=== PATIENT | male | born 1995 | race Hispanic/Latino ===

== ENCOUNTER 2017-07-08 10:03 | Emergency (ER) | payer BC ==
[2017-07-08] MEDS ORDERED: ONDANSETRON HCL 4 MG/2 ML VIAL ONE (11:01)
[2017-07-08] MEDS ORDERED: SODIUM CHLORIDE 0.9% 1000ML 1,000 ML IV ONE (11:01)
[2017-07-08] MEDS ORDERED: KETOROLAC TROMETHAMINE 30MG/ML ONE (11:01)
[2017-07-08] MEDS ORDERED: ACETAMINOPHEN 325 MG TAB ONE (11:01)
[2017-07-08 11:04] LABS: BASOPHILS % (AUTO) 0.4 % (0.0-5.0); EOSINOPHILS % (AUTO) 0.1 % (0.0-8.0); HEMATOCRIT 45.7 % (42-54); LYMPHOCYTES % (AUTO) 9.4 % (21.0-51.0); MEAN CORPUSCULAR HEMOGLOBIN 30.2 pg (27.0-33.0); MEAN CORPUSCULAR HGB CONC 36.1 g/dL (32.0-36.0); MEAN CORPUSCULAR VOLUME 83.6 fL (80-100); MONOCYTES % (AUTO) 13.2 % (3.0-13.0); NEUTROPHILS % (AUTO) 76.9 % (40.0-77.0); NUCLEATED RED BLOOD CELLS 0.1 % (0.0-0.19); PLATELET COUNT (AUTO) 248 K/uL (130-400); RED BLOOD CELL COUNT(AUTO) 5.47 MIL/uL (4.50-6.20); RED CELL DISTRIBUTION WIDTH 13.2 % (11.0-15.5); WHITE BLOOD COUNT (AUTO) 9.7 K/uL (4.8-10.8)
[2017-07-08 11:06] LABS: APPEARANCE,URINE Clear (CLEAR); BILIRUBIN,URINE Small (NEGATIVE); COLOR,URINE Dark Yellow (YELLOW); GLUCOSE, URINE (UA) Negative (NEGATIVE); KETONES,URINE 40 mg/dL (NEGATIVE); LEUKOCYTE ESTERASE ,URINE Trace (NEGATIVE); NITRATE,URINE Negative (NEGATIVE); OCCULT BLOOD,URINE Negative (NEGATIVE); PH,URINE 5.5 (5.0-8.0); PROTEIN,URINE Trace (NEGATIVE)
[2017-07-08 11:13] LABS: POTASSIUM 3.6 mmol/L (3.5-5.1)
[2017-07-08 11:14] LABS: BACTERIA,URINE Rare /HPF (None Seen); RBC,URINE 0-1 /HPF (0-1); WBC,URINE 0-1 /HPF (0-1)
[2017-07-08 11:15] LABS: SQUAMOUS EPITHELIAL CELL,UR Few /HPF (0-2)
[2017-07-08 11:34] LABS: BAND NEUTROPHILS % (MANUAL) 6 % (0-2); BASOPHILS % (MANUAL) 1 % (0-2); LYMPHOCYTES % (MANUAL) 9 % (22-44); MAN.DIFF COMMENT-IMPRESSION MANUAL DIFFERENTIAL; MONOCYTES % (MANUAL) 13 % (2-9); REACTIVE LYMPHOCYTES 2 % (0-0); SEGMENTED NEUTROPHILS % 69 % (40-70)
[2017-07-08 11:35] LABS: PLATELET MORPHOLOGY COMMENT ADEQUATE
== END 2017-07-08 11:58 | disposition home or self-care (01) ==
LOC: EDH 10:03
DX: M25.50 Pain in unspecified joint (principal); R11.10 Vomiting, unspecified; R50.9 Fever, unspecified; R05 Cough; Z88.2 Allergy status to sulfonamides
CPT/HCPCS: 36415; 80048; 81001; 85025; 87804 ×2; 87880; 96361; 96374; 96375; 99284; J1885; J2405; J7030

== ENCOUNTER 2019-04-28 15:43 | Emergency (ER) | payer BC, OTHER ==
[2019-04-28] MEDS ORDERED: ACETAMINOPHEN EXTRA STRENGTH 500 MG TABLET ONE (16:57)
== END 2019-04-28 18:29 | disposition home or self-care (01) ==
LOC: EDH 15:43
DX: J10.1 Influenza due to other identified influenza virus with other respiratory manifestations (principal); Z72.0 Tobacco use; Z88.2 Allergy status to sulfonamides
CPT/HCPCS: 87804

== ENCOUNTER 2023-10-31 19:23 | Emergency (ER) | payer SELFPAY ==
[~2023-10-31] VITALS: Ht 175.3 cm; Wt 108.9 kg
[2023-10-31 19:56] LABS: RAPID GROUP A STREP negative (NEGATIVE)
[2023-10-31 19:58] LABS: SARS-CoV-2, RNA, NAAT NEGATIVE SARS CoV-2 (NEGATIVE)
[2023-10-31 20:05] LABS: INFLUENZA TYPE A Negative For Type A (NEGATIVE); INFLUENZA TYPE B Negative For Type B (NEGATIVE)
[2023-10-31] MEDS ORDERED: AMOX1TAB16 PO (20:48)
[2023-10-31 21:01] VITALS: BP 138/76; PULSE 94; RESP 18; O2SAT 97
[2023-10-31] MEDS: dexaMETHasone SOD PHOSPHATE 4 MG/ML 1ML VIAL IM ONE (21:01)
== END 2023-10-31 21:11 | disposition home or self-care (01) ==
LOC: EDH 19:23
DX: J06.9 Acute upper respiratory infection, unspecified (principal); J32.9 Chronic sinusitis, unspecified; Z20.822 Contact with and (suspected) exposure to COVID-19; Z88.2 Allergy status to sulfonamides
CPT/HCPCS: 99283; 87635; 87880; 87804 ×2; 96372; J1100

== ENCOUNTER 2023-12-07 08:28 | Emergency (ER) | payer SELFPAY ==
[~2023-12-07] VITALS: Ht 175.3 cm; Wt 111.1 kg
[~2023-12-07 08:28] MED LIST: AMOX1TAB16 PO
[2023-12-07 08:55] LABS: RAPID GROUP A STREP negative (NEGATIVE)
[2023-12-07] MEDS: acetaMINOPHEN 500 MG TABLET PO ONE (08:55)
[2023-12-07 08:57] LABS: SARS-CoV-2, RNA, NAAT NEGATIVE SARS CoV-2 (NEGATIVE)
[2023-12-07 08:59] VITALS: BP 138/82; PULSE 99; RESP 17; TEMP 100; O2SAT 99
[2023-12-07 09:03] LABS: INFLUENZA TYPE A Negative For Type A (NEGATIVE); INFLUENZA TYPE B Negative For Type B (NEGATIVE)
[2023-12-07 09:55] VITALS: TEMP 98.8
[2023-12-07] MEDS ORDERED: ACET-66 PO (10:16)
[2023-12-07] MEDS ORDERED: ACET237L PO (10:16)
[2023-12-07] MEDS ORDERED: GUAI5SYR PO (10:21)
[2023-12-07] MEDS ORDERED: GUAI5LIQ13 PO (10:23)
== END 2023-12-07 10:58 | disposition home or self-care (01) ==
LOC: EDH 08:28
DX: B34.9 Viral infection, unspecified (principal); Z20.822 Contact with and (suspected) exposure to COVID-19; Z79.899 Other long term (current) drug therapy; Z88.2 Allergy status to sulfonamides
CPT/HCPCS: 87635; 87804; 87880

== ENCOUNTER → 2024-05-12 | Emergency (ER) | payer BC ==
[~2024-05-12] MED LIST changes: +ACET-66 PO; +GUAI5SYR10 PO
== END ==
LOC: EDH 11:21
DX: J02.9 Acute pharyngitis, unspecified (principal); R50.9 Fever, unspecified; Z53.21 Procedure and treatment not carried out due to patient leaving prior to being seen by health care provider